=== PATIENT | male | born 1965 | race Caucasian/White ===

== ENCOUNTER 2017-05-17 07:59 | Emergency (ER) | payer OTHER ==
[2017-05-17 08:07] VITALS: TEMP 97.5; BMI 25.8
[2017-05-17] MEDS ORDERED: SODIUM CHLORIDE 1,000 ML IV STA (08:13)
[2017-05-17] MEDS ORDERED: ONDANSETRON 4 MG/2 ML VIAL IVPUSH ONE (08:13)
[2017-05-17] MEDS ORDERED: KETOROLAC TROMETHAMINE 30 MG/1 ML VIAL IVPUSH ONE (08:13)
[2017-05-17] MEDS ORDERED: ONDANSETRON 4 MG/2 ML VIAL ONE (08:15)
[2017-05-17] MEDS ORDERED: KETOROLAC TROMETHAMINE 60 MG/2 ML VIAL ONE (08:15)
--- NOTE | 2017-05-17 08:18 | PDOC ---
History of Present Illness - General Chief Complaint: Pain, Acute Stated Complaint: SIDE PAIN (KIDNEY) Time Seen by Provider: 05/17/17 08:11 History Source: Patient Exam Limitations: No Limitations - History of Present Illness Initial Comments: CHIEF COMPLAINT: 51 y/o afebrile male with PMH kidney stone (10 years ago) c/o left side pain since 1am. HISTORY OF PRESENT ILLNESS: The patient states the pain woke him up at 1am and is coming and going. He states it feels like the pain he had with a kidney stone years ago. He has vomited a few times throughout the night. He denies f/ c, CP, SOB, abd pain, diarrhea, constipation, hematuria, dysuria, decreased urinary frequency. Vital signs on arrival are notable for BP of 176/92. REVIEW OF SYSTEMS: GENERAL/CONSTITUTIONAL: No fever/chills. No weakness. No weight change. HEAD, EYES, EARS, NOSE AND THROAT: No change in vision. No ear pain or discharge. No sore throat. CARDIOVASCULAR: No chest pain or shortness of breath. RESPIRATORY: No cough, wheezing, or hemoptysis. GASTROINTESTINAL: +left side pain, nausea and vomiting. No diarrhea or constipation. GENITOURINARY: No dysuria, frequency, or change in urination. MUSCULOSKELETAL: No joint or muscle swelling or pain. No neck or back pain. SKIN: No rash or easy bruising. NEUROLOGIC: No headache, vertigo, loss of consciousness, or loss of sensation. PHYSICAL EXAM: GENERAL: The patient is awake, alert, and fully oriented, in obvious moderate discomfort. He is pacing in the ER room. HEAD: Normal with no signs of trauma. ENT: Pupils equal, round and reactive to light, extraocular movements intact, sclera anicteric, conjunctiva clear. Neck supple. LUNGS: Clear to auscultation bilaterally. Normal excursion. No respiratory distress or use of accessory muscles. CV: RRR, S1/S2, no MRG. Cap refill < 2 sec. ABDOMEN: Soft, non-distended, non-tender even to deep palpation, no hepatomegaly or splenomegaly, no masses. Pain elicited with palpation of left flank. BACK: No CVA TTP b/l. EXTREMITIES: Normal range of motion, no edema. NEUROLOGICAL: Normal speech, normal gait. CN II-XII grossly intact. PSYCH: Normal mood, normal affect. SKIN: Warm, dry, normal turgor, no rashes or lesions noted. Past History - Past Medical History Allergies/Adverse Reactions: Allergies Allergy/AdvReac Type Severity Reaction Status Date / Time shellfish derived Allergy Severe Difficulty Verified 05/17/17 08:07 Breathing Home Medications: Ambulatory Orders Hydrocodone/Acetaminophen [Lortab 7.5-325 mg Tablet] 1 - 2 tab PO Q4H PRN #0 tablet 04/18/15 Ibuprofen 600 mg PO Q6H #12 tablet 05/17/17 Oxycodone HCl/Acetaminophen [Percocet 5-325 mg Tablet] 1 tab PO Q6H #6 tablet MDD 5 05/17/17 Phenazopyridine HCl [Pyridium] 100 mg PO TID #6 tablet 05/17/17 Anemia: No Asthma: No Cancer: No Cardiac Disorders: No CVA: No COPD: No CHF: No Dementia: No Diabetes: No GI Disorders: No (OCCASIONAL HEARTBURN) Disorders: No HTN: No Hypercholesterolemia: No Liver Disease: No Seizures: No Thyroid Disease: No - Surgical History Abdominal Surgery: No Appendectomy: No Cardiac Surgery: No Cholecystectomy: No Lung Surgery: No Neurologic Surgery: No Orthopedic Surgery: No - Psycho/Social/Smoking Cessation Hx Suicidal Ideation: No Smoking History: Never smoked Have you smoked in the past 12 months: No Information on smoking cessation initiated: No Hx Alcohol Use: No Drug/Substance Use Hx: No Substance Use Type: None *Physical Exam - Vital Signs Last Vital Signs Temp Pulse Resp BP Pulse Ox 97.5 F L 66 18 176/92 100 05/17/17 08:03 05/17/17 08:03 05/17/17 08:03 05/17/17 08:03 05/17/17 08:03 ED Treatment Course - LABORATORY CBC & Chemistry Diagram: 05/17/17 08:20 05/17/17 08:20 Medical Decision Making - Medical Decision Making A/P: 51 y/o afebrile male with left flank pain that woke him up from sleep. Plan is as follows: 1. Labs 2. Spiral CT 3. IV fluids 4. IV toradol 5. IV zofran Elevated WBC count. No left shift. No fever. Spiral CT IMPRESSION: Proximal ureter stone measuring 6.3mm on the left side creating proximal hydronephrosis and perinephric stranding. Pt states his pain has improved but he is still uncomfortable. Will give 2mg of morphine. Placed call to Dr. Davis. Spoke with Dr. Davis. He agrees the patient can be discharged to home given no fever, no UTI and stone small enough that should pass. He will see the patient in his office tomorrow morning between 9-11:30am. The patient was given all of his results. His pain is now under control. Will discharge to home with rx for percocet, ibuprofen and pyridium. Instructed the patient to drink at least 64oz of water today and f/u with Dr. Davis tomorrow morning. pt instructed to return to the ER with any worsening or concerning symptoms. The patient verbalizes understanding of all instructions, has no further questions and is awaiting discharge. *DC/Admit/Observation/Transfer Diagnosis at time of Disposition: Kidney stones - Discharge Dispostion Disposition: HOME Condition at time of disposition: Improved - Referrals Referrals: Andrew Pérez MD [Staff Physician] - (Go to his office between 9am- 11am tomorrow morning) - Patient Instructions Printed Discharge Instructions: DI for Kidney Stones Additional Instructions: Discharge Instructions: -You have multiple kidney stones on both sides -3 prescriptions have been sent to your pharmacy; please take as prescribed; 1 of them will turn your urine red/orange -Drink at least 64oz of water daily -Please follow up with Dr. Davis tomorrow in his office between 9am- 11am. His office address is: Dr. Davis [address] [place] [address] [id number] -Return to the ER immediately with any worsening or concerning symptoms.
[2017-05-17 08:29] LABS: BASOPHIL 0.3 % (0-2.0); EOSINOPHIL 2.3 % (0-4.5); MCH 24.3 pg (25.7-33.7); MCHC 32.8 g/dl (32.0-35.9); MEAN CELL VOLUME 74.1 fl (80-96); MEAN PLT VOLUME 7.9 fl (7.5-11.1); NEUTROPHILS 78.7 % (42.8-82.8); PLATELET COUNT 240 K/MM3 (134-434); RDW 14.6 % (11.9-15.9); WHITE BLOOD COUNT 13.4 K/mm3 (4.0-10.0)
[2017-05-17 09:05] LABS: URINE APPEARANCE CLEAR; URINE BILIRUBIN NEGATIVE (NEGATIVE); URINE BLOOD 2+ (NEGATIVE); URINE COLOR LTYELLOW; URINE GLUCOSE (UA) NEGATIVE (NEGATIVE); URINE KETONE NEGATIVE (NEGATIVE); URINE LEUK ESTERASE NEGATIVE (NEGATIVE); URINE NITRITE NEGATIVE (NEGATIVE); URINE PROTEIN NEGATIVE (NEGATIVE); URINE UROBILINOGEN NEGATIVE E.U./dl (0.2-1.0)
[2017-05-17 09:08] LABS: URINE MUCUS RARE; URINE RBC 42 /hpf (0-3); URINE WBC 2 /hpf (3-5)
[2017-05-17 09:13] LABS: ALBUMIN 4.3 g/dl (3.4-5.0); ALK PHOS 67 U/L (45-117); ANION GAP 8 (8-16); BILIRUBIN,TOTAL 0.5 mg/dL (0.2-1.0); CALCIUM 9.4 mg/dL (8.5-10.1); CO2 27 mmol/L (21-32); CREATININE 1.6 mg/dL (0.7-1.3); GLUCOSE,RANDOM 130 mg/dL (74-106); SGOT/AST 18 U/L (15-37); SGPT/ALT 29 U/L (12-78); TOT PROT 7.9 g/dl (6.4-8.2)
[2017-05-17] MEDS ORDERED: morphine CARPU-JECT 2 MG/1 ML DISP.SYRIN ONE (10:05)
[2017-05-17] MEDS ORDERED: morphine CARPU-JECT 2 MG/1 ML DISP.SYRIN IVPUSH ONE (10:06)
[2017-05-17 12:06] VITALS: BP 133/70; PULSE 89
== END 2017-05-17 12:06 | disposition home or self-care (01) ==
LOC: JER 07:59
PROC: 3E033NZ Introduction of Analgesics, Hypnotics, Sedatives into Peripheral Vein, Percutaneous Approach (ICD-10-PCS; principal; 2017-05-17)
PROC: 3E0333Z Introduction of Anti-inflammatory into Peripheral Vein, Percutaneous Approach (ICD-10-PCS; 2017-05-17)
PROC: 3E033GC Introduction of Other Therapeutic Substance into Peripheral Vein, Percutaneous Approach (ICD-10-PCS; 2017-05-17)
DX: N13.2 Hydronephrosis with renal and ureteral calculous obstruction (principal); Z87.442 Personal history of urinary calculi
CPT/HCPCS: 36415; 74176; 80053; 81003; 81015; 85025; 87086; 99282-25

== ENCOUNTER 2022-09-18 02:01 | Emergency (ER) | payer OTHER ==
[2022-09-18 02:21] VITALS: BP 147/99; PULSE 104; RESP 20; TEMP 98.7; BMI 28.8
[2022-09-18] MEDS ORDERED: MECLIZINE HCL 12.5 MG TABLET PO ONE (03:05)
[2022-09-18] MEDS ORDERED: MECLIZINE HCL 12.5 MG TABLET ONE (03:09)
[2022-09-18] MEDS ORDERED: SODIUM CHLORIDE 0.9% 1000 ML INFUS.BAG IV ONE (03:17)
[2022-09-18 03:47] LABS: BASO % 0.4 % (0-2.0); EOS % 1.3 % (0-4.5); HEMATOCRIT 42.4 % (35.4-49); HEMOGLOBIN 14.2 GM/dL (11.7-16.9); LYMPH % 20.2 % (8-40); MCH 24.6 pg (25.7-33.7); MCHC 33.4 g/dl (32.0-35.9); MEAN CELL VOLUME 73.6 fl (80-96); MEAN PLT VOLUME 7.4 fl (7.5-11.1); MONO % 6.1 % (3.8-10.2); PLATELET COUNT 242 10^3/uL (134-434); RBC 5.76 M/mm3 (4.00-5.60); RDW 15.3 % (11.9-15.9); WHITE BLOOD COUNT 7.8 K/mm3 (4.0-10.0)
[2022-09-18 04:08] LABS: CALCIUM 9.3 mg/dL (8.5-10.1)
[2022-09-18 04:12] LABS: CREATININE 1.4 mg/dL (0.55-1.3)
[2022-09-18 04:14] LABS: BILIRUBIN,TOTAL 0.3 mg/dL (0.2-1); TOT PROT 7.5 g/dl (6.4-8.2)
== END 2022-09-18 05:17 | disposition home or self-care (01) ==
LOC: JER 02:01
DX: R42 Dizziness and giddiness (principal)
CPT/HCPCS: 36415; 80053; 82962; 84484; 85025; 93005; 93010; 99284-25

== ENCOUNTER 2022-11-05 08:42 | Day surgery (SDC) | payer OTHER ==
[2022-11-03 18:30] VITALS: BMI 28.0
[2022-11-05 10:32] VITALS: BP 134/78; PULSE 76; RESP 19; TEMP 98
== END 2022-11-05 11:00 | disposition home or self-care (01) ==
LOC: FASU-ENDO 08:42
PROVIDERS: ATTEND Internal Medicine Gastroenterology
PROC: 0DB98ZX Excision of Duodenum, Via Natural or Artificial Opening Endoscopic, Diagnostic (ICD-10-PCS; 2022-11-05)
PROC: 0DB68ZX Excision of Stomach, Via Natural or Artificial Opening Endoscopic, Diagnostic (ICD-10-PCS; 2022-11-05)
PROC: 0DB48ZX Excision of Esophagogastric Junction, Via Natural or Artificial Opening Endoscopic, Diagnostic (ICD-10-PCS; 2022-11-05)
PROC: 0DBP8ZX Excision of Rectum, Via Natural or Artificial Opening Endoscopic, Diagnostic (ICD-10-PCS; principal; 2022-11-05 09:39)
DX: Z12.11 Encounter for screening for malignant neoplasm of colon (principal); K29.80 Duodenitis without bleeding; K62.1 Rectal polyp; K29.50 Unspecified chronic gastritis without bleeding; K21.00 Gastro-esophageal reflux disease with esophagitis, without bleeding; K44.9 Diaphragmatic hernia without obstruction or gangrene; R12 Heartburn
CPT/HCPCS: 88305-TC; 88342-TC

== ENCOUNTER 2023-01-10 15:30 | Emergency (ER) | payer OTHER ==
[2023-01-10 15:50] VITALS: BP 136/98; PULSE 94; RESP 16; TEMP 99; BMI 28.8
== END 2023-01-10 17:57 | disposition home or self-care (01) ==
LOC: FER 15:30
DX: R07.89 Other chest pain (principal)
CPT/HCPCS: 36415; 71046-TC-FY; 82550; 82553; 84484; 93005; 99285-25

== ENCOUNTER 2023-04-02 20:06 | Emergency (ER) | payer OTHER ==
[2023-04-02 20:13] VITALS: BP 133/88; PULSE 78; RESP 18; TEMP 97.8; BMI 28.0
[2023-04-02] MEDS ORDERED: methylPREDNISolone NA SUCC 125 MG/2 ML VIAL IVPUSH ONE (21:03)
[2023-04-02] MEDS ORDERED: SODIUM CHLORIDE 1,000 ML IV SCH (21:15)
[2023-04-02 21:54] LABS: HEMATOCRIT 40.7 % (35.4-49); HEMOGLOBIN 13.7 G/dL (11.7-16.9); MCH 25.3 pg (25.7-33.7); MCHC 33.5 g/dl (32.0-35.9); MEAN CELL VOLUME 75.4 fl (80-96); MEAN PLT VOLUME 8.9 fl (7.5-11.1); PLATELET COUNT 235.9 10^3/uL (134-434); RDW 16.9 % (11.9-15.9); WHITE BLOOD COUNT 6.9 10^3/uL (4.0-10.8)
[2023-04-02 22:03] LABS: BILIRUBIN,TOTAL 0.3 mg/dl (0.2-1); CALCIUM 8.7 mg/dl (8.5-10); CREATININE 1.1 mg/dl (0.55-1.3); MAGNESIUM 2.1 mg/dL (1.8-2.4); PHOSPHOROUS 3.8 mg/dl (2.5-4.9); POTASSIUM 3.8 mmol/L (3.5-5.1); TOT PROT 6.9 g/dl (6.4-8.2)
== END 2023-04-02 22:43 | disposition home or self-care (01) ==
LOC: FER 20:06
DX: R25.3 Fasciculation (principal); R09.89 Other specified symptoms and signs involving the circulatory and respiratory systems
CPT/HCPCS: 36415; 80053; 83735; 84100; 85027; 99283-25

== ENCOUNTER 2023-09-10 23:39 | Emergency (ER) | payer OTHER ==
[2023-09-11] MEDS ORDERED: NAPROXEN 500 MG TABLET PO ONE (00:15)
[2023-09-11] MEDS ORDERED: NAPROXEN 500 MG TABLET ONE (00:17)
[2023-09-11] MEDS ORDERED: morphine SULFATE 4 MG/ML VIAL ONE (00:25)
[2023-09-11 00:42] VITALS: BP 132/81; PULSE 88; RESP 18; TEMP 97.8; BMI 28.0
== END 2023-09-11 01:37 | disposition home or self-care (01) ==
LOC: FER 23:39
DX: R07.89 Other chest pain (principal)
CPT/HCPCS: 36415; 71045-TC-FY; 84484; 93005; 93010; 99285-25